=== PATIENT | female | born 2000 | race Caucasian/White ===

== ENCOUNTER 2024-03-04 14:36 | Emergency (ER) | payer OTHER ==
[~2024-03-04] VITALS: Ht 165.1 cm; Wt 74.8 kg
[2024-03-04 15:00] VITALS: BP 100/68; PULSE 99; RESP 18; TEMP 98.1; O2SAT 99
[2024-03-04 15:43] LABS: BILIRUBIN,URINE NEGATIVE (NEGATIVE); BLOOD, URINE NEGATIVE (NEGATIVE); COLOR,URINE YELLOW (YELLOW); LEUKOCYTE ESTERASE ,URINE 2+ (NEGATIVE); NITRITE, URINE NEGATIVE (NEGATIVE); PH,URINE 7.5 (5.0-9.0); PROTEIN,URINE TRACE (NEGATIVE); UGLUCOSE NEGATIVE (NEGATIVE)
[2024-03-04 15:44] LABS: APPEARANCE,URINE HAZY (CLEAR)
[2024-03-04 15:46] LABS: BACTERIA,URINE 3+ /HPF (None Seen); MUCUS,URINE 2+ /LPF (None Seen); WBC,URINE 16-25 (MOD) /HPF (0-5)
[2024-03-04] MEDS: ACETAMINOPHEN EXTRA STRENGTH 500 MG TAB PO ONE (15:54)
[2024-03-04] MEDS ORDERED: NITR100C7 PO (16:05)
== END 2024-03-04 16:09 | disposition home or self-care (01) ==
LOC: MED 14:36
DX: O23.42 Unspecified infection of urinary tract in pregnancy, second trimester (principal); N39.0 Urinary tract infection, site not specified; Z3A.27 27 weeks gestation of pregnancy
CPT/HCPCS: 81001; 87086; 99283